=== PATIENT | female | born 1980 | race Caucasian/White ===

== ENCOUNTER 2020-11-02 18:42 | Emergency (ER) | payer BC, OTHER ==
[2020-11-02 19:21] LABS: RED BLOOD COUNT 4.27 M/UL (4.00-5.10); WHITE BLOOD COUNT 10.1 K/UL (4.5-11.0)
[2020-11-02 19:35] LABS: BUN/CREATININE RATIO 18 (0-10)
[2020-11-02] MEDS ORDERED: IBUPROFEN800 MG PO (21:46)
[2020-11-02] MEDS ORDERED: COLACE 100MG C100 MG PO (21:46)
[2020-11-02] MEDS ORDERED: ZOFRAN 4 MG TAB4 MG PO (21:46)
[2020-11-02] MEDS ORDERED: BENTYL 20MG TAB20 MG PO (21:46)
== END 2020-11-02 21:55 | disposition home or self-care (01) ==
LOC: ER1 18:42
PROVIDERS: Emergency Medicine
DX: R10.31 Right lower quadrant pain (principal); J45.909 Unspecified asthma, uncomplicated
CPT/HCPCS: 80053; 81001; 83690; 84703; 85025; 87086; 96374; 96375; 96376; 99284; J2270; Q9962